=== PATIENT | female | born 1990 | race Caucasian/White ===

== ENCOUNTER 2022-12-05 16:14 | Emergency (ER) | payer OTHER, SELFPAY ==
--- NOTE | ~2022-12-05 | XR_ITS ---
EXAMINATION: XR chest 2V DATE: 12/05/2022 18:51 INDICATION: Productive cough. TECHNIQUE: Frontal and lateral views of the chest were obtained. COMPARISON: None. FINDINGS: The chest demonstrates clear lungs without pneumonia, pleural effusion, or pneumothorax. Th e heart size is normal. There is mild chronic anterior wedging of multiple midthoracic vertebral bodi es. There is mild pectus excavatum. IMPRESSION: 1. No acute cardiopulmonary disease. Reviewed, dictated and finalized at location A. [employer]
[2022-12-05 16:17] VITALS: BP 123/95; PULSE 91; RESP 18; TEMP 36.6; O2SAT 94
[2022-12-05 16:50] LABS: Strep Group A RT-PCR NOT DETECTED (Negative)
[2022-12-05 17:01] LABS: Influenza A QL RT-PCR Negative (Negative); Influenza B QL RT-PCR Negative (Negative); RSV RNA, RT-PCR Negative (Negative); SARS-CoV-2 RNA PCR Negative
--- NOTE | 2022-12-05 18:42 | ED.URI ---
HPI - URI/Sore Throat General Chief Complaint: Upper Respiratory Infection Stated Complaint: cough, nausea, headache Time Seen by Provider: 12/05/22 17:40 Source: patient Mode of arrival: ambulatory Limitations: no limitations History of Present Illness HPI Narrative: This is a 32-year-old female that presents to the emergency department for cold symptoms ongoing over the last 3 days. Reports productive cough, congestion, sore throat, and wheezing. Also reports some nausea and subjective fever. Denies shortness of breath. Related Data Allergies Allergy/AdvReac Type Severity Reaction Status Date / Time loratadine Allergy Unknown Verified 05/08/16 17:49 Review of Systems Review of Systems: CONSTITUTIONAL: Reports fever ENT: Reports rhinorrhea, congestion, sore throat CARDIOVASCULAR: Denies chest pain RESPIRATORY: Reports cough. Denies dyspnea. GASTROINTESTINAL: Reports nausea All systems reviewed & are unremarkable except as noted in HPI and below PMFSH Past Medical History Medical History (Updated 12/05/22 @ 19:50 by Samina Argueta PA-C) No active medical problems Family History Family History (Updated 06/30/14 @ 07:13 by DOCTOR UNKNOWN) Other Family history of type 2 diabetes mellitus Social History Social History Smoking status: Never smoker Alcohol intake: never Exam Narrative: GENERAL: Well-appearing, well-nourished, and in no acute distress. HEAD: Normocephalic, atraumatic. EYES: EOMI. ENT: Nares clear, no rhinorrhea or epistaxis. Mucous membranes moist. Oropharynx without tonsillar hypertrophy exudate or other lesions. Bilateral TMs pearly cuello non-bulging NECK: Supple. No adenopathy or masses. CHEST: No respiratory distress. Mild expiratory wheezing. No rales or rhonchi HEART: Regular rate and rhythm. No murmur heard. Normal peripheral pulses. EXTREMITIES: Normal range of motion. No edema. SKIN: Warm, dry, no rash. NEURO: No focal deficits. Alert and oriented x3. PSYCH: Normal mood and affect Course Course Emergency Course: Patient reports improvement after nebulizer treatment, lungs are much more open Vital Signs Vital signs: Vital Signs Temperature 97.8 F 12/05/22 16:17 Pulse Rate 91 12/05/22 16:17 Respiratory Rate 18 12/05/22 16:17 Blood Pressure 123/95 H 12/05/22 16:17 Pulse Oximetry 94 12/05/22 16:17 Oxygen Delivery Room Air 12/05/22 16:17 Temperature 97.8 F 12/05/22 16:17 Pulse Rate 91 12/05/22 16:17 Respiratory Rate 18 12/05/22 16:17 Blood Pressure 123/95 H 12/05/22 16:17 Pulse Oximetry 94 12/05/22 16:17 Oxygen Delivery Room Air 12/05/22 16:17 MDM - URI/Sore Throat MDM Narrative Medical decision making narrative: Patient presents to the emergency department for cold symptoms ongoing over the last couple of days. She is afebrile and nontoxic-appearing. Wheezing upon arrival. Given nebulizer treatment and steroid with improvement. Oxygen saturation is normal on room air. Influenza, COVID, strep screens are negative. Chest x-ray without acute cardiopulmonary abnormality. She will be continued on oral steroids and given inhaler for home. Patient agrees with further plan of care. She is to follow-up with primary care provider. She was given warnings to return to the ER Differential Diagnosis Differential diagnosis: Likely upper respiratory infection, viral infection, bronchitis, influenza and other (covid, strep pharyngitis) Lab Data Attestation: I reviewed the patient's lab results. Labs: Lab Results 12/05/22 12/05/22 Range/Units 16:20 16:20 Influenza A (RT-PCR) Negative (Negative) Influenza B (RT-PCR) Negative (Negative) RSV (RT-PCR) Negative (Negative) SARS-CoV-2 RNA (RT-PCR) Negative Group A Strep (PCR) Not detected (Negative) Imaging Data Radiologist's impression: ITS Impressions Chest X-Ray 12/05/22 18:55 IMPRESSION: 1. No acute cardiopulmonary disease.
[2022-12-05] MEDS: IPRATROPIUM BR 0.02% INH SOLN 0.5 MG/2.5 ML VIAL INHALATION (18:59)
[2022-12-05] MEDS: ALBUTEROL SULFATE NEB 2.5 MG/3 ML INH INHALATION (18:59)
[2022-12-05] MEDS: predniSONE 20 MG TABLET 40 MG PO (19:07)
[2022-12-05 20:05] VITALS: BP 120/80; PULSE 80; RESP 18; O2SAT 98
== END 2022-12-05 20:06 | disposition home or self-care (01) ==
PROVIDERS: Emergency Medicine; Emergency Provider Physician Assistant
DX: J20.9 Acute bronchitis, unspecified (principal); Z20.822 Contact with and (suspected) exposure to COVID-19
CPT/HCPCS: 71046; 87637; 87651; 99283; J7512